=== PATIENT | male | born 2000 | race African-American/Black ===

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

== ENCOUNTER 2018-12-21 12:52 | Emergency (ER) | payer MEDICAID ==
[~2018-12-21] VITALS: Ht 172.7 cm; Wt 72.0 kg
[2018-12-21] MEDS ORDERED: MAGNESIUM/ALUMINUM HYDROXIDE/SIMETHICONE 30ML UDC PO STA (15:03)
[2018-12-21] MEDS ORDERED: DICYCLOMINE 10 MG/5 ML ORAL SYR PO STA (15:03)
[2018-12-21] MEDS ORDERED: VISCOUS LIDOCAINE 2% 15 ML UDC PO STA (15:03)
[2018-12-21 15:23] LABS: BASOPHILS % 0.7 % (0.0-2.0); EOSINOPHILS % 1.9 % (0.0-5.0); HEMATOCRIT. 42.1 % (42.0-52.0); HEMOGLOBIN. 14.1 g/dL (14.0-18.0); LYMPHOCYTES % 8.3 % (20.0-50.0); MEAN CORPUSCULAR HEMOGLOBIN 31.5 pg (28.0-32.0); MEAN CORPUSCULAR VOLUME 93.9 fL (80.0-94.0); MONOCYTES % 11.4 % (2.0-8.0); NEUTROPHILS % 77.7 % (40.0-76.0); PLATELET 170 x1000/uL (130-400); RED BLOOD CELL COUNT 4.49 mill/uL (4.7-6.1); RED CELL DISTRIBUTION WIDTH 12.8 % (11.6-14.6)
[2018-12-21 15:24] LABS: CHLORIDE 107 mEq/L (98-107)
[2018-12-21 15:44] LABS: CLARITY URINE CLEAR (CLEAR); COLOR URINE YELLOW (YELLOW); KETONES URINE NEGATIVE (NEGATIVE); LEUKOCYTE ESTERASE URINE 2+ (NEGATIVE); NITRITE URINE NEGATIVE (NEGATIVE); OCCULT BLOOD URINE NEGATIVE (NEGATIVE); PH URINE 6.5 (4.5-8.0); PROTEIN URINE NEGATIVE (NEGATIVE); SPECIFIC GRAVITY URINE 1.009 (1.005-1.030); UROBILINOGEN URINE 0.2 E.U./dL (0.2-1.0)
[2018-12-21 17:30] VITALS: BP 128/66
== END 2018-12-21 17:38 | disposition home or self-care (01) ==
LOC: ER 12:52
DX: N30.00 Acute cystitis without hematuria (principal)
CPT/HCPCS: 36415; 81003; 99284